=== PATIENT | female | born 1995 | race Caucasian/White ===

== ENCOUNTER → 2023-04-27 | Outpatient (CLI) | payer OTHER ==
--- NOTE | 2023-04-27 17:03 | Diagnostic Imaging Report ---
INDICATION: patient, survey. TECHNIQUE: Multiple real-time grayscale images were obtained over the gravid uterus. COMPARISON: None during this . FINDINGS: A single live intrauterine fetus is seen measuring 20 weeks 2 days in size by composite measurements. The heart rate is 153 bpm. Fetus is in cephalic presentation. The placenta is anterior with no evidence of previa. Cervical length is 3.6 cm. Amniotic fluid index is normal at 12.7 cm, with normal gestational sac shape. survey demonstrated normal-appearing kidneys and bladder. stomach appeared normal. Intracranial ventricles appeared normal. Four-chamber heart view appeared normal. Three-vessel cord and cord insertion were normal. Views of the spine were normal. Maternal adnexa were not well seen but showed no free fluid. Biometrical measurements are as follows: Biparietal 5.04 cm, age 21 weeks 2 days. Head circumference 17.86 cm, age 20 weeks 3 days. Abdominal circumference 14.30 cm, age 19 weeks 5 days. Femur length 3.09 cm, age 19 weeks 5 days. Sonographic estimate age: 20 weeks 2 days. Sonographic estimated date of delivery: 09/12/2023. Estimated Weight: 310 gm (+/- 45 gm). LMP percentile: 31%. heart rate: 153 beats per minute. number: 1 of 1. IMPRESSION: Single live intrauterine fetus measuring 20 weeks 2 days in size with no detectable abnormalities. Dictated by: Dictated on workstation # [id number]
== END ==
LOC: RAD 14:51
PROVIDERS: ATTEND Nurse Practitioner Women's Health
DX: Z34.02 Encounter for supervision of normal first pregnancy, second trimester (principal); Z3A.20 20 weeks gestation of pregnancy
CPT/HCPCS: 76805